=== PATIENT | male | born 1940 | race African-American/Black ===

== ENCOUNTER 2019-04-28 07:25 | Inpatient (IN) | payer OTHER, BC ==
[2019-04-28] MEDS: SOD CHLORIDE 0.9% 1,000 ML IV ×2 (08:00→17:07)
[2019-04-28 08:03] LABS: ADD MAN DIFF? NO
[2019-04-28 08:07] LABS: WHITE BLOOD COUNT 8.5 10^3/ul (4.8-10.8)
[2019-04-28 08:07] LABS: BASOPHILS % 0.4 % (0.0-2.0); EOSINOPHILS % 0.1 % (0.0-7.0); HEMOGLOBIN 13.1 g/dl (14.0-18.0); LYMPHOCYTES % 11.7 % (15.0-51.0); MEAN CORPUSCULAR HEMOGLOBIN 30.5 pg (29.0-33.0); MEAN CORPUSCULAR HGB CONC 33.6 g/dl (32.0-37.0); MEAN CORPUSCULAR VOLUME 90.9 fl (82.0-101.0); MEAN PLATELET VOLUME 10.2 fl (7.4-10.4); MONOCYTE # 1.2 10^3/ul (0.3-0.9); MONOCYTES % 14.1 % (0.0-11.0); NEUTROPHIL # 6.3 10^3/ul (1.6-7.5); NEUTROPHILS % 73.3 % (39.0-77.0); PLATELET COUNT 231 10^3/UL (140-415); RED BLOOD COUNT 4.29 10^6/ul (4.70-6.10); RED CELL DISTRIBUTION WIDTH 11.8 % (11.5-14.5)
[2019-04-28 08:25] LABS: INR 1.01; PROTIME 13.4 Sec (11.9-14.9)
[2019-04-28 08:26] LABS: ALANINE AMINOTRANSFERASE 13 IU/L (13-69); ALBUMIN 4.2 g/dl (3.3-4.9); ALKALINE PHOSPHATASE 130 IU/L (42-121); ANION GAP 9 (5-13); ASPARTATE AMINO TRANSFERASE 18 IU/L (15-46); BILIRUBIN,INDIRECT 1.3 mg/dl (0-1.1); BILIRUBIN,TOTAL 1.3 mg/dl (0.2-1.3); BLOOD UREA NITROGEN 25 mg/dl (7-20); CALCIUM 9.8 mg/dl (8.4-10.2); CARBON DIOXIDE 28 mmol/L (21-31); CHLORIDE 99 mmol/L (97-110); CREATINE KINASE 60 IU/L (23-200); CREATININE 1.05 mg/dl (0.61-1.24); GLUCOSE 105 mg/dl (70-220); POTASSIUM 4.4 mmol/L (3.5-5.1); SODIUM 136 mmol/L (135-144)
[2019-04-28 08:37] LABS: D-DIMER 1896.01 ng/ml (<460)
[2019-04-28 08:38] LABS: B-TYPE NATRIURETIC PEPTIDE 809 PG/ML (0-450); CK INDEX 0.9; CK-MB 0.53 ng/ml (0.0-2.4); TROPONIN-I 0.057 ng/ml (0.000-0.120)
[2019-04-28] MEDS: SOD CHLORIDE 0.9% 100 ML (09:18)
[2019-04-28] MEDS: IOHEXOL 100 ML (09:19)
[2019-04-28] MEDS: ASPIRIN 325 MG TAB PO ×2 (09:51→23:23)
[2019-04-28] MEDS: NITROGLYCERIN (SL) 0.4 MG TAB SL ×4 (10:06→23:21)
[2019-04-28] MEDS: LORAZEPAM 2 MG INJ IV ×2 (10:06→23:21)
[2019-04-28 10:15] LABS: ADD UMIC YES; UR ASCORBIC ACID 20 mg/dL (NEGATIVE); UR BILIRUBIN (Dip) NEGATIVE (NEGATIVE); UR BLOOD (Dip) NEGATIVE (NEGATIVE); UR CLARITY CLEAR (CLEAR); UR COLOR YELLOW (YELLOW); UR GLUCOSE (Dip) NEGATIVE (NEGATIVE); UR KETONES (Dip) TRACE mg/dL (NEGATIVE); UR LEUKOCYTE ESTERASE (Dip) NEGATIVE Leu/ul (NEGATIVE); UR NITRITE (Dip) NEGATIVE (NEGATIVE); UR RBC 1 /HPF (0-5); UR SPECIFIC GRAVITY (Dip) 1.046 (1.003-1.030); UR TOTAL PROTEIN (Dip) 1+ mg/dl (NEGATIVE); UR UROBILINOGEN (Dip) 1+ mg/dL (NEGATIVE); UR WBC 0 /HPF (0-5)
[2019-04-28] MEDS ORDERED: ACETAMINOPHEN 325 MG TAB PO (11:30)
[2019-04-28] MEDS ORDERED: ONDANSETRON 4 MG INJ IV ×2 (11:30→16:00)
[2019-04-28] MEDS ORDERED: NACL 0.9% 3 ML SYG IV (16:00)
[2019-04-28 17:38] LABS: HIV 1&2 ANTIBODY NEGATIVE (NEGATIVE)
[2019-04-28] MEDS: ENOXAPARIN 60 MG/0.6 ML SYG SC (18:16)
[2019-04-28] MEDS: LATANOPROST 0.005% 2.5 ML OPH BOTH EYES (20:44)
[2019-04-28] MEDS: DORZOLAMIDE/TIMOLOL/PF 0.2 ML DROPERETTE BOTH EYES (20:44)
[2019-04-28] MEDS: ATORVASTATIN 40 MG TAB PO (20:44)
[2019-04-28] MEDS ORDERED: DORZOLAMIDE/TIMOLOL 10 ML OPH BOTH EYES (21:00)
[2019-04-28 21:21] LABS: RAPID PLASMA REAGIN NONREACTIVE (NR)
[2019-04-28] MEDS ORDERED: morphine 2 MG INJ IV (23:00)
[2019-04-29] MEDS ORDERED: VERAPAMIL 5 MG INJ
[2019-04-29] MEDS ORDERED: IOHEXOL 350MG/ML 50 ML BTL
[2019-04-29] MEDS ORDERED: IODIXANOL LOCM 100 ML BTL
[2019-04-29] MEDS ORDERED: NITROGLYCERIN (IC) 100 MCG/ML INJ
[2019-04-29] MEDS ORDERED: HEPARIN 1000 UNITS/ML 10 ML INJ
[2019-04-29] MEDS ORDERED: LIDOCAINE 1% (MDV) 20 ML INJ
[2019-04-29] MEDS ORDERED: FENTAnyl 50 MCG/ML VIAL (00:10)
[2019-04-29] MEDS ORDERED: MIDAZOLAM 1 MG/ML 2 ML INJ (00:10)
[2019-04-29 00:33] LABS: ANION GAP 8 (5-13); BLOOD UREA NITROGEN 23 mg/dl (7-20); CALCIUM 9.2 mg/dl (8.4-10.2); CARBON DIOXIDE 25 mmol/L (21-31); CHLORIDE 102 mmol/L (97-110); CREATINE KINASE 436 IU/L (23-200); CREATININE 0.81 mg/dl (0.61-1.24); GLUCOSE 129 mg/dl (70-220); SODIUM 135 mmol/L (135-144)
[2019-04-29] MEDS: SOD CHLORIDE 0.9% 1,000 ML IV ×5 (01:39→23:40)
[2019-04-29] MEDS ORDERED: morphine 2 MG INJ IV (03:00)
[2019-04-29] MEDS ORDERED: ACETAMINOPHEN 650MG/20.3ML CUP PO (03:00)
[2019-04-29] MEDS: FAMOTIDINE 20 MG INJ IV ×3 (03:52→20:25)
[2019-04-29] MEDS: HEPARIN 1000 UNITS/ML 10 ML INJ IV (03:53)
[2019-04-29] MEDS: HEPARIN 25000 UNITS/250 ML 250 ML IV (03:56)
[2019-04-29 03:59] LABS: ADD MAN DIFF? NO
[2019-04-29 04:05] LABS: WHITE BLOOD COUNT 9.3 10^3/ul (4.8-10.8)
[2019-04-29 04:05] LABS: BASOPHILS % 0.2 % (0.0-2.0); HEMATOCRIT 36.3 % (42.0-52.0); HEMOGLOBIN 12.2 g/dl (14.0-18.0); LYMPHOCYTES # 0.9 10^3/ul (0.8-2.9); LYMPHOCYTES % 9.6 % (15.0-51.0); MEAN CORPUSCULAR HEMOGLOBIN 30.9 pg (29.0-33.0); MEAN CORPUSCULAR HGB CONC 33.6 g/dl (32.0-37.0); MEAN CORPUSCULAR VOLUME 91.9 fl (82.0-101.0); MEAN PLATELET VOLUME 10.9 fl (7.4-10.4); MONOCYTE # 1.3 10^3/ul (0.3-0.9); MONOCYTES % 13.8 % (0.0-11.0); NEUTROPHIL # 7.1 10^3/ul (1.6-7.5); PLATELET COUNT 208 10^3/UL (140-415); RED BLOOD COUNT 3.95 10^6/ul (4.70-6.10); RED CELL DISTRIBUTION WIDTH 11.8 % (11.5-14.5)
[2019-04-29 04:16] LABS: CREATINE KINASE 426 IU/L (23-200)
[2019-04-29 04:20] LABS: INR 1.05; PROTIME 13.8 Sec (11.9-14.9); PT RATIO 1.1
[2019-04-29 04:21] LABS: PARTIAL THROMBOPLASTIN TIME 42.1 Sec (23.0-35.0)
[2019-04-29 04:30] LABS: CK INDEX 5.6
[2019-04-29 04:43] LABS: ALANINE AMINOTRANSFERASE 19 IU/L (13-69); ALBUMIN 3.5 g/dl (3.3-4.9); ALBUMIN/GLOBULIN RATIO 0.94; ALKALINE PHOSPHATASE 116 IU/L (42-121); ANION GAP 8 (5-13); ASPARTATE AMINO TRANSFERASE 80 IU/L (15-46); BILIRUBIN,INDIRECT 0.9 mg/dl (0-1.1); BILIRUBIN,TOTAL 0.9 mg/dl (0.2-1.3); BLOOD UREA NITROGEN 22 mg/dl (7-20); CARBON DIOXIDE 26 mmol/L (21-31); CHLORIDE 103 mmol/L (97-110); CREATININE 0.83 mg/dl (0.61-1.24); GLUCOSE 128 mg/dl (70-220); MAGNESIUM 2.1 mg/dl (1.7-2.5); PHOSPHORUS 3.4 mg/dl (2.5-4.9); POTASSIUM 3.9 mmol/L (3.5-5.1); SODIUM 137 mmol/L (135-144); TOTAL PROTEIN 7.2 g/dl (6.1-8.1)
[2019-04-29 05:27] LABS: FREE THYROXINE INDEX (Calc) 2.23 ug/ml (0.65-3.89); T3 UPTAKE 34.9 % (23.5-40.5); T4 (THYROXINE) 6.4 ug/dl (5.5-11.0)
[2019-04-29 05:41] LABS: THYROID STIMULATING HORMONE 0.716 MIU/L (0.465-4.680)
[2019-04-29] MEDS: DORZOLAMIDE/TIMOLOL/PF 0.2 ML DROPERETTE BOTH EYES ×2 (09:27→20:14)
[2019-04-29] MEDS: LISINOPRIL 5 MG TAB PO (09:27)
[2019-04-29] MEDS: HYDROCHLOROTHIAZIDE 25 MG TAB PO (09:27)
[2019-04-29] MEDS: ASPIRIN 81 MG TAB PO ×2 (09:27→15:03)
[2019-04-29] MEDS ORDERED: HEPARIN 1000 UNITS/ML 10 ML INJ IV (09:30)
[2019-04-29 12:15] LABS: PROTIME 14.3 Sec (11.9-14.9); PT RATIO 1.1
[2019-04-29 12:50] LABS: CREATINE KINASE 342 IU/L (23-200)
[2019-04-29 12:51] LABS: PARTIAL THROMBOPLASTIN TIME 70.3 Sec (23.0-35.0)
[2019-04-29] MEDS: BACLOFEN 10 MG TAB PO ×2 (13:00→20:15)
[2019-04-29 13:03] LABS: CK INDEX 4.6
[2019-04-29 20:00] LABS: PARTIAL THROMBOPLASTIN TIME 73.2 Sec (23.0-35.0)
[2019-04-29] MEDS: ATORVASTATIN 40 MG TAB PO (20:15)
[2019-04-29] MEDS: LATANOPROST 0.005% 2.5 ML OPH BOTH EYES (21:30)
[2019-04-30 03:16] LABS: PARTIAL THROMBOPLASTIN TIME 64.8 Sec (23.0-35.0)
[2019-04-30] MEDS: SOD CHLORIDE 0.9% 1,000 ML IV ×3 (07:39→20:33)
[2019-04-30] MEDS: ACETAMINOPHEN 325 MG TAB PO ×2 (08:15→16:44)
[2019-04-30] MEDS: ASPIRIN 81 MG TAB PO (08:15)
[2019-04-30] MEDS: HYDROCHLOROTHIAZIDE 25 MG TAB PO (08:15)
[2019-04-30] MEDS: DORZOLAMIDE/TIMOLOL/PF 0.2 ML DROPERETTE BOTH EYES ×2 (08:16→20:35)
[2019-04-30] MEDS: LISINOPRIL 5 MG TAB PO (08:16)
[2019-04-30] MEDS: BACLOFEN 10 MG TAB PO ×3 (08:16→20:37)
[2019-04-30] MEDS: FAMOTIDINE 20 MG INJ IV ×2 (08:16→10:00)
[2019-04-30 09:00] LABS: ANION GAP 6 (5-13); BLOOD UREA NITROGEN 19 mg/dl (7-20); CARBON DIOXIDE 28 mmol/L (21-31); CHLORIDE 102 mmol/L (97-110); CREATININE 0.96 mg/dl (0.61-1.24); GLUCOSE 102 mg/dl (70-220); POTASSIUM 3.9 mmol/L (3.5-5.1); SODIUM 136 mmol/L (135-144)
[2019-04-30 09:59] LABS: PARTIAL THROMBOPLASTIN TIME 72.6 Sec (23.0-35.0)
[2019-04-30] MEDS: HEPARIN 25000 UNITS/250 ML 250 ML IV ×2 (10:56→23:35)
[2019-04-30] MEDS: LATANOPROST 0.005% 2.5 ML OPH BOTH EYES (20:33)
[2019-04-30] MEDS: HYDROCODONE/APAP (5/325) TAB PO (20:35)
[2019-04-30] MEDS: ATORVASTATIN 40 MG TAB PO (20:36)
[2019-04-30] MEDS: FAMOTIDINE 20 MG TAB PO (20:36)
[2019-04-30] MEDS: DOCUSATE SODIUM 100 MG CAP PO (20:37)
[2019-04-30 23:10] LABS: PARTIAL THROMBOPLASTIN TIME 53.4 Sec (23.0-35.0)
[2019-04-30] MEDS: LORAZEPAM 1 MG TAB PO (23:31)
[2019-05-01] MEDS: HYDROCODONE/APAP (5/325) TAB PO (05:43)
[2019-05-01 06:48] LABS: ADD MAN DIFF? NO
[2019-05-01 06:52] LABS: BASOPHILS % 0.3 % (0.0-2.0); EOSINOPHILS % 0.4 % (0.0-7.0); HEMATOCRIT 32.5 % (42.0-52.0); HEMOGLOBIN 10.5 g/dl (14.0-18.0); LYMPHOCYTES # 0.8 10^3/ul (0.8-2.9); LYMPHOCYTES % 10.9 % (15.0-51.0); MEAN CORPUSCULAR HEMOGLOBIN 30.5 pg (29.0-33.0); MEAN CORPUSCULAR HGB CONC 32.3 g/dl (32.0-37.0); MEAN CORPUSCULAR VOLUME 94.5 fl (82.0-101.0); MEAN PLATELET VOLUME 10.6 fl (7.4-10.4); MONOCYTE # 0.8 10^3/ul (0.3-0.9); MONOCYTES % 11.9 % (0.0-11.0); NEUTROPHIL # 5.4 10^3/ul (1.6-7.5); NEUTROPHILS % 76.2 % (39.0-77.0); PLATELET COUNT 238 10^3/UL (140-415); RED BLOOD COUNT 3.44 10^6/ul (4.70-6.10); RED CELL DISTRIBUTION WIDTH 11.9 % (11.5-14.5)
[2019-05-01 07:26] LABS: PARTIAL THROMBOPLASTIN TIME 91.5 Sec (23.0-35.0)
[2019-05-01 07:36] LABS: ANION GAP 10 (5-13); BLOOD UREA NITROGEN 20 mg/dl (7-20); CALCIUM 8.3 mg/dl (8.4-10.2); CARBON DIOXIDE 23 mmol/L (21-31); CHLORIDE 103 mmol/L (97-110); CREATININE 0.81 mg/dl (0.61-1.24); GLUCOSE 101 mg/dl (70-220); POTASSIUM 3.7 mmol/L (3.5-5.1); SODIUM 136 mmol/L (135-144)
[2019-05-01] MEDS: DORZOLAMIDE/TIMOLOL/PF 0.2 ML DROPERETTE BOTH EYES ×2 (09:04→20:37)
[2019-05-01] MEDS: DOCUSATE SODIUM 100 MG CAP PO ×2 (09:05→20:37)
[2019-05-01] MEDS: ASPIRIN 81 MG TAB PO (09:05)
[2019-05-01] MEDS: LISINOPRIL 5 MG TAB PO (09:05)
[2019-05-01] MEDS: BACLOFEN 10 MG TAB PO ×3 (09:05→20:37)
[2019-05-01] MEDS: HYDROCHLOROTHIAZIDE 25 MG TAB PO (09:06)
[2019-05-01] MEDS: FAMOTIDINE 20 MG TAB PO ×2 (09:06→20:37)
[2019-05-01 09:09] LABS: MAGNESIUM 1.9 mg/dl (1.7-2.5)
[2019-05-01 09:09] LABS: PHOSPHORUS 3.2 mg/dl (2.5-4.9)
[2019-05-01] MEDS: SOD CHLORIDE 0.9% 1,000 ML IV (12:39)
[2019-05-01 16:17] LABS: PARTIAL THROMBOPLASTIN TIME 63.2 Sec (23.0-35.0)
[2019-05-01] MEDS: LATANOPROST 0.005% 2.5 ML OPH BOTH EYES (20:37)
[2019-05-01] MEDS: ATORVASTATIN 40 MG TAB PO (20:37)
[2019-05-01 23:03] LABS: PARTIAL THROMBOPLASTIN TIME 55.8 Sec (23.0-35.0)
[2019-05-02] MEDS: HEPARIN 25000 UNITS/250 ML 250 ML IV ×3 (00:18→16:44)
[2019-05-02 07:23] LABS: PARTIAL THROMBOPLASTIN TIME 71.2 Sec (23.0-35.0)
[2019-05-02] MEDS: BACLOFEN 10 MG TAB PO ×2 (10:03→13:00)
[2019-05-02] MEDS: DOCUSATE SODIUM 100 MG CAP PO (10:03)
[2019-05-02] MEDS: DORZOLAMIDE/TIMOLOL/PF 0.2 ML DROPERETTE BOTH EYES (10:03)
[2019-05-02] MEDS: LISINOPRIL 5 MG TAB PO (10:04)
[2019-05-02] MEDS: ASPIRIN 81 MG TAB PO (10:04)
[2019-05-02] MEDS: FAMOTIDINE 20 MG TAB PO (10:04)
[2019-05-02] MEDS: HYDROCHLOROTHIAZIDE 25 MG TAB PO (10:04)
[2019-05-02] MEDS: NITROGLYCERIN (SL) 0.4 MG TAB SL ×2 (10:51→14:53)
[2019-05-02 15:01] LABS: ADD MAN DIFF? NO
[2019-05-02 15:02] LABS: WHITE BLOOD COUNT 9.4 10^3/ul (4.8-10.8)
[2019-05-02 15:02] LABS: BASOPHILS % 0.2 % (0.0-2.0); EOSINOPHILS % 0.1 % (0.0-7.0); HEMATOCRIT 33.1 % (42.0-52.0); HEMOGLOBIN 11.1 g/dl (14.0-18.0); LYMPHOCYTES # 0.6 10^3/ul (0.8-2.9); LYMPHOCYTES % 6.8 % (15.0-51.0); MEAN CORPUSCULAR HEMOGLOBIN 31.1 pg (29.0-33.0); MEAN CORPUSCULAR HGB CONC 33.5 g/dl (32.0-37.0); MEAN CORPUSCULAR VOLUME 92.7 fl (82.0-101.0); MEAN PLATELET VOLUME 11.2 fl (7.4-10.4); MONOCYTES % 10.5 % (0.0-11.0); NEUTROPHIL # 7.7 10^3/ul (1.6-7.5); NEUTROPHILS % 82.1 % (39.0-77.0); PLATELET COUNT 263 10^3/UL (140-415); RED BLOOD COUNT 3.57 10^6/ul (4.70-6.10); RED CELL DISTRIBUTION WIDTH 12.1 % (11.5-14.5)
[2019-05-02 15:22] LABS: ANION GAP 9 (5-13); BLOOD UREA NITROGEN 20 mg/dl (7-20); CALCIUM 8.7 mg/dl (8.4-10.2); CARBON DIOXIDE 26 mmol/L (21-31); CHLORIDE 99 mmol/L (97-110); CREATININE 0.83 mg/dl (0.61-1.24); GLUCOSE 107 mg/dl (70-220); POTASSIUM 3.9 mmol/L (3.5-5.1); SODIUM 134 mmol/L (135-144)
[2019-05-02] MEDS: morphine 2 MG INJ IV (15:25)
== END 2019-05-02 17:25 | disposition short-term general hospital (02) | DRG 282 ==
LOC: ICU 04-29 02:14 → E/R 07:25 → TEL 11:25
PROVIDERS: Internal Medicine
PROC: 4A023N7 Measurement of Cardiac Sampling and Pressure, Left Heart, Percutaneous Approach (ICD-10-PCS; principal; 2019-04-29)
PROC: B2011ZZ Plain Radiography of Multiple Coronary Arteries using Low Osmolar Contrast (ICD-10-PCS; 2019-04-29)
PROC: B2051ZZ Plain Radiography of Left Heart using Low Osmolar Contrast (ICD-10-PCS; 2019-04-29)
DX: I21.4 Non-ST elevation (NSTEMI) myocardial infarction (principal); I25.10 Atherosclerotic heart disease of native coronary artery without angina pectoris; I25.5 Ischemic cardiomyopathy; R06.00 Dyspnea, unspecified; I44.7 Left bundle-branch block, unspecified; I10 Essential (primary) hypertension; E78.5 Hyperlipidemia, unspecified; R63.4 Abnormal weight loss; Z68.23 Body mass index [BMI] 23.0-23.9, adult; M48.00 Spinal stenosis, site unspecified; G31.84 Mild cognitive impairment of uncertain or unknown etiology; I25.119 Atherosclerotic heart disease of native coronary artery with unspecified angina pectoris; M62.838 Other muscle spasm; Z85.46 Personal history of malignant neoplasm of prostate; R97.21 Rising PSA following treatment for malignant neoplasm of prostate; M54.2 Cervicalgia
CPT/HCPCS: 70450; 71045; 71275; 72125; 72170; 80048; 80053; 81001; 82085; 82550; 82553; 83036; 83655; 83735; 83880; 84100; 84153; 84154; 84436; 84443; 84479; 84484; 85025; 85378; 85610; 85730; 86592; 86703; 87040-91; 87081; 87086; 87400; 93005; 93306; 93458; 93880; 96374; 99217; 99285-25; G0378